=== PATIENT | male | born 1985 | race Caucasian/White ===

== ENCOUNTER 2022-08-07 23:03 | Inpatient (IN) | payer OTHER, SELFPAY ==
[2022-08-07 23:14] VITALS: BP 168/101; PULSE 69; RESP 18; TEMP 37.1; O2SAT 96
[2022-08-07 23:16] VITALS: BMI 27.2
--- NOTE | 2022-08-08 04:00 | PC.NURSE ---
23308/07/200 arrived from the ER via x/c and staff escort. Direct admit from [facility]. Voluntary with affidavit. Bright affect, conversation oriented and goal directed. Per ER, Pt had eaten a Brillo pad, microwave cord. No previous hx of pica events. Pt stated he had been drinking and did not recall the event. State the [place] emergency [place] was [place] and was directed to go the nearest hospital. [employer] with Major Depression, PTSD and Anxiety. Obtains his meds via the [place]. Stated being med compliant. States that about every 3 6 mos he will have 12-14 beers. No medication history available. Fax sent to [facility]. Med list of Bupropion 300mg daily, and Fluticasone 50mcg nasal inh 2 sprays each nostril q AM was returned. Denies SI/HI/AVH. Oriented to room.
[2022-08-08 06:00] VITALS: BP 107/65; PULSE 53; RESP 14; TEMP 36.5; O2SAT 95
[2022-08-08] MEDS: hyDROXYzine 25 mg Capsule 50 MG PO (09:01)
--- NOTE | 2022-08-08 12:46 | P.NPUHP_ITS ---
Providers/Chief Complaint Admitting Physician: Matty Calix MD Chief Complaint: suicidal ideation. HPI NPU History of Present Illness David Jenkins is a 36 year old male who presented to the emergency department in [place] at [facility] with suicidal ideation. He had reportedly stated that he wished to go to [facility] and reported that he had attempted to eat a metal Brillo pad and a microwave cord along with a light bulb. The patient was transferred here on involuntary hospitalization to the neuropsychiatric unit for further treatment and evaluation. The patient reports that he had drank at [facility] a 12 pack of beer on the day he presented to the emergency department at [facility] and has no recollection of what he had stated. He reports today having active depressed mood for several weeks and endorses having an active history of posttraumatic stress disorder. 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 He endorses feelings of emotional numbness and reports depressed mood and avoidance of places and things that remind him of the trauma. He reports that he is always on edge and states that he is easily startled. He reports that he often avoids large crowds with increased anxiety about something bad happening to him. He endorses that he had been frustrated with his medications and had discontinued these medications many months ago as they had not been helpful for his problems. He denied any psychotic symptoms nor did he endorse any history of manic symptoms. He had reported diminished appetite and reported low motivation along with significant inertia over the past few months. He had minimized any substance abuse currently and reports that he had not been drinking on a regular basis. He has reported having significant psychosocial stressors stating that he works a full-time job and when his job ends he has been responsible for caring for his [id number] son. He reports having sleep continuity disruption often sleeping only 2 to 3 hours a night without interruption. He is also endorsed a an extensive history of panic attacks that appear uncued for several years with associated chest pain shortness of breath numbing and tingling in his fingers difficulty breathing and tachycardia lasting approximately 40 to 60 minutes and occurring nearly every day. He does assist endorse associated agoraphobia. Inpatient psychiatric history: Patient reports 2 prior hospitalizations most recently in November 2016 in [place] while still in the [employer]. His first psychiatric hospitalization was also in 2011 while he was in the on active duty. Outpatient psychiatric history: Patient reports that he has been treated in the past with by a psychiatrist for PTSD and major depressive disorder with previous medication trials reported including Wellbutrin, Zoloft, and Prozac. He reports no recent psychiatric follow-up or any prior treatment for PTSD. Drug and alcohol history: He reports a past significant history of drug use particularly alcohol abuse but reports only occasional use of alcohol over the past 6 months. He denies any history of stimulant opiate or cannabis use. Medical history: Hypertension, hypercholesterolemia Allergies: Penicillin Surgical history: He reports a history of right clavicle surgery Medications: Lisinopril 20 mg daily Zocor 40 mg daily Family psychiatric history: Reports maternal grandfather had a history of depre ssion. Social history: Patient lives in [facility] with his girlfriend and his girlfriend and 6-year-old daughter. 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 He has 2 children ages 12 and 10 who do not live in the home with him but live with their mothers. He endorses having been raised by his mother and maternal grand parents. He reports having endured trauma during his childhood but did not wish to elaborate. He reports no legal problems. He reports graduating high school and entering into the [employer] for which she served 8 years from 2007 until 2014. He reports having grown up in [facility]. He reports having served 2 tours of duty in [place] in 2007 and [place] in [place] [id number]. He reports being service-connected for PTSD. Meds NPU Home Medications Medication Instructions Recorded Confirmed Last Taken Type lisinopril 10 mg tablet 10 mg PO DAILY 08/07/22 08/07/22 Unknown History Allergies Allergy/AdvReac Type Severity Reaction Status Date / Time Penicillins Allergy Unknown Verified 08/07/22 23:34 Mental Status Exam MSE Comments: Patient is a casually dressed white male was alert oriented to person place and time. His gait was within normal limits his hygiene was fair. There was no evidence of any abnormal involuntary motor movements tics or tremors appreciated. He did appear to be hypervigilant. He described his mood as depressed. His affect was restricted in range and mood-congruent. His thought process was linear logical and goal-directed. His thought content showed no active homicidal ideation. He minimized any suicidal ideation at this time. He did not appear to be responding to internal stimuli. There was no evidence of any delusional thinking. His attention appeared adequate. His insight was poor. His judgment was poor. His impulse control appeared limited. Vitals/I&O/Wt Last Vital Signs Temp 97.7 F 08/08/22 06:00 Pulse 53 L 08/08/22 06:00 Resp 14 08/08/22 06:00 BP 107/65 08/08/22 06:00 Pulse Ox 95 08/08/22 06:00 O2 Del Method 08/07/22 23:16 Weight last 48 hrs Weight 78.925 kg Weight 78.925 kg A&P Assessment and plan (1) PTSD (post-traumatic stress disorder): (2) Major depressive disorder: Plan This is a 36-year-old white male with PTSD and major depressive disorder who appears to be having increased psychosocial stressors particularly at home with no social supports and no active mental health services engaged with at this time. 1.? Begin Cymbalta 30mg daily to target anxiety and depression, seroquel 50mg at night to target PTSD related symptoms. 2.? Encourage individual, group and milieu therapy 3.? Continue q-15 minute check for safety 4.? Recommend sober living treatment at the highest level of care to which the patient is willing to commit. Involuntary Hold Information 96 Hour Hold: 96 Hour Involuntary Admission: No Attestations NPU Medical Necessity Statement*: Inpatient hospitalization is medically necessary and the clinically appropriate intervention at this time. We will monitor medications and make changes as indicated. Patient will be in the hospital for over two midnights. Likely length of stay is three to five days. Coding Level of Care Code New Pt Acute Dehydrator Operator for Gali Fwd Patient Type New History Problem Focused Exam Problem Focused Medical Decision Making Straight Forward Diagnoses PTSD (post-traumatic stress disorder) F43.10 Major depressive disorder F32.9
[2022-08-08] MEDS: nicotine 4 mg lozenge MUCOUS MEM (13:49)
[2022-08-08 14:00] VITALS: BP 133/80; PULSE 78; RESP 18; TEMP 36.6; O2SAT 95
[2022-08-08] MEDS: duloxetine 30 mg Capsule PO (17:00)
[2022-08-08 20:27] VITALS: BP 152/74; PULSE 83; RESP 16; TEMP 36.8; O2SAT 95
[2022-08-08] MEDS: quetiapine 25 mg Tablet 50 MG PO (20:56)
[2022-08-08] MEDS: trazodone 50 mg Tablet PO (20:56)
[2022-08-09 06:00] VITALS: BP 126/66; PULSE 85; RESP 18; TEMP 36.4; O2SAT 94
[2022-08-09] MEDS: duloxetine 30 mg Capsule PO (08:31)
[2022-08-09] MEDS: nicotine 4 mg lozenge MUCOUS MEM (08:31)
[2022-08-09 14:00] VITALS: BP 149/95; PULSE 78; RESP 17; TEMP 36.8; O2SAT 96
[2022-08-09] MEDS: nicotine 2 mg Gum BUCCAL (14:35)
--- NOTE | 2022-08-09 17:52 | W.PM.NPUPNS ---
Subjective NPU Subjective: David is a 36-year-old white male with PTSD and major depressive disorder admitted with unusual behavior and suicidal statements. Patient reports that he had simply been worn out of with months of consistent and chronic worry with an exacerbation of PTSD related symptoms and depressed mood. He did not continue to report low energy but reported improved sleep on the Seroquel last night. The patient reported feeling less hopeless as he reports being able to get rest here. He reported desire to have routine psychotherapy and reports motivation to receive help for his mood fluctuations and chronic depression. Mental Status Exam MSE Comments: Patient is a casually dressed white male was alert oriented to person place and time. His gait was within normal limits his hygiene was fair. There was no evidence of any abnormal involuntary motor movements tics or tremors appreciated. He did appear to be hypervigilant. He described his mood as depressed. His affect remained restricted in range and mood-congruent. His thought process was linear logical and goal-directed. His thought content showed no active homicidal ideation. He minimized any suicidal ideation at this time. He did not appear to be responding to internal stimuli. There was no evidence of any delusional thinking. His attention appeared adequate. His insight was poor. His judgment was poor. His impulse control appeared limited. Vitals/I&O/Wt Last Vital Signs Temp 98.3 F 08/09/22 14:00 Pulse 78 08/09/22 14:00 Resp 17 08/09/22 14:00 BP 149/95 08/09/22 14:00 Pulse Ox 96 08/09/22 14:00 O2 Del Method 08/08/22 14:00 Weight last 48 hrs Weight 78.925 kg Weight 78.925 kg A&P Assessment and plan (1) PTSD (post-traumatic stress disorder): (2) Major depressive disorder: Plan This is a 36-year-old white male with PTSD and major depressive disorder who appears to be having increased psychosocial stressors particularly at home with no social supports and no active mental health services engaged with at this time. 1.? Increase Cymbalta 60mg daily to target anxiety and depression, seroquel 75mg at night to target PTSD related symptoms. 2.? Encourage individual, group and milieu therapy 3.? Continue q-15 minute check for safety 4.? Recommend sober living treatment at the highest level of care to which the patient is willing to commit. Involuntary Hold Information 96 Hour Hold: 96 Hour Involuntary Admission: No Attestations NPU Medical Necessity Statement*: Inpatient hospitalization is medically necessary and the clinically appropriate intervention at this time. We will monitor medications and make changes as indicated. Patient will be in the hospital for over two midnights. Likely length of stay is three to five days. Coding Level of Care Code Established Pt Acute Slubber Runner for Chg Fwd Patient Type Established History Problem Focused Exam Problem Focused Medical Decision Making Straight Forward Diagnoses PTSD (post-traumatic stress disorder) F43.10 Major depressive disorder F32.9
[2022-08-09] MEDS: quetiapine 25 mg Tablet 75 MG PO (20:29)
[2022-08-09 22:00] VITALS: BP 152/92; PULSE 80; RESP 20; TEMP 36.9; O2SAT 95
[2022-08-10 06:00] VITALS: BP 143/83; PULSE 60; RESP 18; TEMP 36.9; O2SAT 94
[2022-08-10] MEDS: duloxetine 60 mg Capsule PO (08:46)
--- NOTE | 2022-08-10 11:15 | P.NPUDS_ITS ---
Diagnoses at Discharge Discharge Diagnosis (1) PTSD (post-traumatic stress disorder): Status: Acute (2) Major depressive disorder: Status: Acute Reason for Visit Reason for Visit: suicidal ideation. Brief History: History of Present Illness David Jenkins is a 36 year old male who presented to the emergency department in [place] at [facility] with suicidal ideation.? He had reportedly stated that he wished to go to [facility] and reported that he had attempted to eat a metal Brillo pad and a microwave cord along with a light bulb.? The patient was transferred here on involuntary hospitalization to the neuropsychiatric unit for further treatment and evaluation.? The patient reports that he had drank at least a 12 pack of beer on the day he presented to the emergency department at [facility] and has no recollection of what he had stated.? He reports today having active depressed mood for several weeks and endorses having an active history of posttraumatic stress disorder.? 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 He endorses feelings of emotional numbness and reports depressed mood and avoidance of places and things that remind him of the trauma.? He reports that he is always on edge and states that he is easily startled.? He reports that he often avoids large crowds with increased anxiety about something bad happening to him.? He endorses that he had been frustrated with his medications and had discontinued these medications many months ago as they had not been helpful for his problems.? He denied any psychotic symptoms nor did he endorse any history of manic symptoms.? He had reported diminished appetite and reported low motivation along with significant inertia over the past few months.? He had minimized any substance abuse currently and reports that he had not been drinking on a regular basis.? He has reported having significant psychosocial stressors stating that he works a full-time job and when his job ends he has been responsible for caring for his [id number] son.? He reports having sleep continuity disruption often sleeping only 2 to 3 hours a night without interruption.? He is also endorsed a an extensive history of panic attacks that appear uncued for several years with associated chest pain shortness of breath numbing and tingling in his fingers difficulty breathing and tachycardia lasting approximately 40 to 60 minutes and occurring nearly every day.? He does assist endorse associated agoraphobia. Inpatient psychiatric history: Patient reports 2 prior hospitalizations most recently in November 2016 in [place] while still in the [employer].? His first psychiatric hospitalization was also in 2011 while he was in the on active duty. Outpatient psychiatric history: Patient reports that he has been treated in the past with by a psychiatrist for PTSD and major depressive disorder with previous medication trials reported including Wellbutrin, Zoloft, and Prozac.? He reports no recent psychiatric follow-up or any prior treatment for PTSD. Drug and alcohol history: He reports a past significant history of drug use particularly alcohol abuse but reports only occasional use of alcohol over the past 6 months.? He denies any history of stimulant opiate or cannabis use. Medical history: Hypertension, hypercholesterolemia Allergies: Penicillin Surgical history: He reports a history of right clavicle surgery Medications: Lisinopril 20 mg daily Zocor 40 mg daily Family psychiatric history: Reports maternal grandfather had a history of depression. Social history: Patient lives in [facility] with his girlfriend and his girlfriend and 6-year-old daughter.? 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 He has 2 children ages 12 and 10 who do not live in the home with him but live with their mothers.? He endorses having been raised by his mother and maternal grand parents.? He reports having endured trauma during his childhood but did not wish to elaborate.? He reports no legal problems.? He reports graduating high school and entering into the [employer] for [employer] h she served 8 years from 2007 until 2014.? He reports having grown up in [facility].? He reports having served 2 tours of duty in [place] in 2007 and [place] in [place] from [id number].? He reports being service-connected for PTSD. Hospital Course Hospital Course During the hospitalization, patient had routine laboratory studies which were within normal limits except for few outliers.? Additionally there was a general medical evaluation which was also within normal limits and revealed no new acute processes. ? Discharge Summary: ? At the time of discharge, lethality was denied and psychosis was resolving.? Mood and anxiety were well managed.? Patient endorsed a plan to avoid all drugs of abuse and follow-up with the aftercare recommendations of the treatment team.? Patient was evaluated and deemed to be absent credible lethality, and had achieved the maximum benefit from an inpatient hospitalization, so was discharged. ? Involuntary Hold Information 96 Hour Hold: 96 Hour Involuntary Admission: No Mental Status Exam MSE Comments: Patient is a casually dressed white male was alert oriented to person place and time. His gait was within normal limits his hygiene was fair. There was no evidence of any abnormal involuntary motor movements tics or tremors appreciated. \ He described his mood as better. His affect was brighter on discharge. His thought process was linear logical and goal- directed. His thought content showed no active homicidal ideation. He minimized any suicidal ideation at this time. He did not appear to be responding to internal stimuli. There was no evidence of any delusional thinking. His attention appeared adequate. His insight was improved. His judgment was fair. His impulse control appeared better. Discharge Data Vitals: Last Vital Signs Temp 98.5 F 08/10/22 06:00 Pulse 60 08/10/22 06:00 Resp 18 08/10/22 06:00 BP 143/83 08/10/22 06:00 Pulse Ox 94 08/10/22 06:00 O2 Del Method 08/10/22 06:00 Discharge Plan Discharge Patient Disposition: Home Condition: Stable Prescriptions: New quetiapine 25 mg Tablet 75 mg PO BEDTIME 30 Days Qty: 90 1RF duloxetine 60 mg Capsule,Delayed Release(Dr/Ec) 60 mg PO DAILY 30 Days Qty: 30 1RF Continued lisinopril 10 mg Tablet 10 mg PO DAILY 30 Days Qty: 30 1RF Discharge Orders: Discharge Order (Routine); Ordered 08/10/22 Ordered By: Ubaldo Espinosa Referrals: [facility] [Other] - 08/12/22 10:00 am (Appointment with Salma Dennis, Psychologist.) [facility] Apple MD [Other] - 08/12/22 11:00 am (Follow up. ) Discharge Diet: Advance as tolerated Discharge Activity: Resume usual activity Patient Instructions: Depression, Quetiapine (By mouth), Duloxetine (By mouth), Post Traumatic Stress Disorder (GEN), Opioid Safety Activity Restrictions/Additional Instructions: additional information regarding TMS for treatment of major depressive disorder provided. Discharge Attestations NPU Time Spent in Discharge Care*: less than 30 min Specific Discharge Activities: Specific discharge activities: educating patient, educating and/or supporting family/caregiver, discussing with supportive employment case manager/social workers/dc planners, documenting/other paperwork and evaluating patient/reviewing data Coding Level of Care Code Established Pt Acute Spanish Moss Picker for Chg Fwd Patient Type Established History Problem Focused Exam Problem Focused Medical Decision Making Straight Forward Diagnoses PTSD (post-traumatic stress disorder) F43.10 Major depressive disorder F32.9
[2022-08-10 11:27] VITALS: BP 143/83; PULSE 60; RESP 18; TEMP 36.9; O2SAT 94
== END 2022-08-10 12:28 | disposition home or self-care (01) | DRG 881 ==
PROVIDERS: Admitting Provider Psychiatry & Neurology Psychiatry; Visit Provider Psychiatry & Neurology Psychiatry
DX: F32.9 Major depressive disorder, single episode, unspecified (principal); R45.851 Suicidal ideations; F43.12 Post-traumatic stress disorder, chronic; Y37.90XS Military operations, unspecified, sequela; F41.9 Anxiety disorder, unspecified; F41.0 Panic disorder [episodic paroxysmal anxiety]; Z88.0 Allergy status to penicillin; F10.10 Alcohol abuse, uncomplicated
CPT/HCPCS: 97165